=== PATIENT | female | born 1990 | race African-American/Black ===

== ENCOUNTER 2018-10-15 15:54 | Emergency (ER) | payer BC ==
[~2018-10-15] VITALS: Ht 165.1 cm; Wt 52.0 kg
[2018-10-15] MEDS ORDERED: IBUPROFEN 600MG TABLET PO ONE (17:45)
[2018-10-15 17:47] VITALS: BP 144/89
== END 2018-10-15 19:04 | disposition left against medical advice (07) ==
LOC: ER 15:54
DX: M79.641 Pain in right hand (principal)
CPT/HCPCS: 99282